=== PATIENT | female | born 1935 | race Two or more races ===

== ENCOUNTER 2017-08-26 12:54 | Emergency (ER) | payer OTHER ==
[~2017-08-26] VITALS: Ht 165.1 cm; Wt 53.1 kg
[2017-08-26] MEDS ORDERED: SYNTHROID50 MCG (13:00)
[2017-08-26] MEDS ORDERED: EVISTA60 MG (13:00)
[2017-08-26] MEDS ORDERED: AMLODIPINE BES2.5 MG (13:01)
== END 2017-08-26 18:55 | disposition home or self-care (01) ==
LOC: ER 12:54
DX: K52.9 Noninfective gastroenteritis and colitis, unspecified (principal)